=== PATIENT | male | born 1980 | race Hispanic/Latino ===

== ENCOUNTER 2016-07-24 23:44 | Emergency (ER) | payer OTHER ==
[~2016-07-24] VITALS: Ht 172.7 cm; Wt 90.9 kg
[~2016-07-24 23:44] MED LIST: AMOX-366 PO
[2016-07-25 00:01] VITALS: BP 149/100; PULSE 70; RESP 16; O2SAT 96
[2016-07-25 01:08] LABS: BASOPHILS % (AUTO) 0.8 % (0-3); EOSINOPHILS % (AUTO) 2.2 % (0-5); MONOCYTES % (AUTO) 7.5 % (4-12); Mean Corpuscular Hemoglobin 28.8 pg (27.0-35.0); Mean Corpuscular Volume 83.2 fL (81-100); NEUTROPHILS % (AUTO) 40.4 % (40-74); Platelet Count 346 bil/L (150-400)
--- NOTE | 2016-07-25 01:22 | ED.REPORT ---
HPI-General Illness Date of Service Jul 25, 2016 ED Provider: Aime Sampson MD Patient is a 35 year old male with a history of a skull fracture who presents to the ED complaining of increased fatigue that started 1 month ago. He describes his fatigue as what you experience when you take a road trip and drive for many hours without rest. 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 He feels lazy at work and that he cannot do his fair share of the work. He also reports having a headache , which he describes as a pressure on one side of his head. Patient is able to sleep at night normally, usually 8-9 hours. Patient reports recently being depressed, as one of his nephews several weeks ago. However his symptoms started before that event occurred. Patient denies chest pain, shortness of breath, or fever. He is a former smoker, quit 4 years ago. The patient has not consumed alcohol since his symptoms started. Patient denies illicit drug use. Nursing Notes Stated Complaint: FATIGUE/HEAD PRESSURE Chief Complaint: General Complaint Nursing Notes Reviewed: Yes Allergies: Coded Allergies: No Known Allergies (Unverified Allergy, Unknown, 05/31/15) Scheduled Amoxicillin/Clav K 875-125 mg (Augmentin 875-125 mg) 1 Each Tablet 1 TABLET PO BID Miscellaneous Medications ([None]) General Time Seen by MD: 01:20 Chief Complaint Other (fatigue) Hx Obtained From: Patient Arrived By: Walk-in Sudden in Onset?: No Onset Occurred: More than a week ago... (1 month) Symptom Duration: Since onset Location: : Head Quality: Painful, Pressure Severity: Current: Moderate Severity: Maximum: Moderate Recent Healthcare: No recent doctor visit, No recent hospitalization Similar Sx Previous: No Past Medical History Past Medical History skull fracture 2000 Past Surgical History Hand surgery parotid mass removed Reports: Appendectomy Smoking History Never Smoker Social History Alcohol Use: Denies alcohol use Drug Use: Denies drug use Other Social History: Good social support, Lives with children, Local resident Ambulatory Status Independent Review of Systems Full Review of Systems Constitutional: Reports: Fatigue, Malaise, Denies: Fever Respiratory: Denies: Shortness of breath Cardiovascular: Denies: Chest pain Neurologic: Reports: Headache, Denies: Change LOC Psychiatric: Denies: Depression Complete sys rev & neg: except as marked. Physical Exam Vital Signs Vital Signs Date Time Temp Pulse Resp B/P Pulse Ox O2 Delivery O2 Flow Rate FiO2 07/25/16 03:04 76 16 07/25/16 00:01 36.1 70 16 149/100 96 Room Air Initial VS: Reviewed Head / Eyes: Normocephalic, PERRL ENT: Conjunctiva normal, No scleral icterus Neck: Supple, Full range of motion Respiratory: Breath sounds normal, Clear to auscultation, No respiratory distress Cardiovascular: Regular rate & rhythm, Heart sounds normal Extremities: Vascular intact, Neuro intact, No swelling, No tenderness Skin: Warm, Dry, No cyanosis Neurologic: Alert, Oriented, Nonfocal Psychiatric: Mood/affect normal, Behavior normal, Normal thought content General/Constitutional: Awake, Alert, No acute distress Interpretation & Diagnostics Lab Results Interpretation Result Diagram: 07/25/16 0100 07/25/16 0100 Test 07/25/16 01:00 White Blood Count 7.2th/mm3 (3.8-10.1) Red Blood Count 4.93mil/mm3 (4.40-5.80) Hemoglobin 14.2g/dL (13.8-17.2) Hematocrit 41.0% (41.0-50.0) Mean Corpuscular Volume 83.2fL (81-100) Mean Corpuscular Hemoglobin 28.8pg (27.0-35.0) Mean Corpuscular Hemoglobin Concent 34.6% (32.0-37.0) Red Cell Distribution Width 13.1% (12.3-15.4) Platelet Count 346bil/L (150-400) Neutrophils (%) (Auto) 40.4% (40-74) Lymphocytes (%) (Auto) 48.8% (14-46) Monocytes (%) (Auto) 7.5% (4-12) Eosinophils (%) (Auto) 2.2% (0-5) Basophils (%) (Auto) 0.8% (0-3) Sodium Level 141mEq/L (134-144) Potassium Level 4.0mEq/L (3.5-5.2) Chloride Level 101mEq/L (97-108) Carbon Dioxide Level 24mmol/L (18-29) Blood Urea Nitrogen 15mg/dL (6-20) Creatinine 0.83mg/dL (0.76-1.27) Estimat Glomerular Filtration Rate 112mL/min (>59) Glucose Level 113mg/dL (60-99) Calcium Level 9.3mg/dL (8.5-10.1) Magnesium Level 2.1mg/dL (1.6-2.6) Total Bilirubin 0.4mg/dL (0.0-1.2) Aspartate Amino Transf (AST/SGOT) 28U/L (0-50) Alanine Aminotransferase (ALT/SGPT) 34U/L (0-44) Alkaline Phosphatase 113U/L (25-150) Total Protein 7.6g/dL (6.4-8.4) Albumin 4.6g/dL (3.4-5.0) Thyroid Stimulating Hormone (TSH) 1.020uIU/mL (0.450-4.500) Free Thyroxine 1.15ng/dL (0.82-1.77) Hold [place] Top Tube Received (Received) Re-Eval/Medical Decision Med Decision/Clinical Course 35-year-old male who presents with nonspecific symptoms of being unable to keep up at work and general fatigue. Initial screening labs were normal to include blood count, electrolytes, and thyroid. He will need further evaluation that I can not provide here in the emergency room to include more advanced imaging (MRI ) and more advanced laboratory that are [facility]. He was offered CT scanning of his head now but declined. He is encouraged to follow up as soon as possible. Source of Hx: Old records Time of Eval: 02:59 Re-Evaluation/Progress Note: Discussed the patient's lab results. No acute process identified. Patient understands the plan to be discharged home. Discharge instructions and follow-up discussed. All questions were addressed. Return to the ED warnings given. Counseled Regarding: Diagnosis, Lab results, Need for follow-up, When/why to return to ED Discharge & Departure Primary Impression: Fatigue Fatigue type: unspecified Qualified Code: R53.83 - Other fatigue Disposition: Home Discharge Condition All VS Reviewed: Yes Condition: No Change Additional Instructions: Screening labs to include looking for thyroid problems, anemia, or electrolyte abnormalities were all normal. There is no explanation found for your fatigue symptoms. Recommend that you follow up with your regular doctor for further evaluation. Referrals: [facility] Scribe Attestation Portions of this note were transcribed by Miriam Miranda. I, Dr. Sampson personally performed the history, physical exam and medical decision-making; I reviewed and confirmed the accuracy of the information in the transcribed note. Signed by: Tio Birmingham, 07/25/2016 0316 copies to: [facility] Aime Sampson MD Jul 25, 2016 01:22 Miriam Miranda Jul 25, 2016 01:29
[2016-07-25 02:07] LABS: Magnesium 2.1 mg/dL (1.6-2.6)
[2016-07-25 03:04] VITALS: PULSE 76; RESP 16
== END 2016-07-25 03:05 | disposition home or self-care (01) ==
LOC: SED 23:44
DX: R53.83 Other fatigue (principal); R51 Headache

== ENCOUNTER 2016-08-02 16:26 | Emergency (ER) | payer OTHER ==
[~2016-08-02] VITALS: Ht 172.7 cm; Wt 90.5 kg
[2016-08-02 16:29] VITALS: BP 144/93; PULSE 74; RESP 16; O2SAT 98
--- NOTE | 2016-08-02 18:09 | ED.REPORT ---
HPI-Headache Date of Service August 02, 2016 ED Provider: Tenzin GibsonO. A 35 year old male with a history of hypertension, hyperlipidemia, pre-diabetes , and a skull fracture (2000) presents to the ED with an intermittent headache onset one month ago, most recent onset one hour prior to arrival. The pain is described as throbbing pressure in his parietal and occipital regions, as though his "brain is swollen." Associated symptoms include near syncope, anxiety , and mental status change described as "fogginess" and "trouble comprehending. " The patient denies fever, sinus pain, congestion, or other symptoms. He has been seen by his PCP recently for dizziness, weakness, lightheadedness, and headache. The patient was also seen in the ED on 07/25/16 with one month of fatigue, depression, and headache. Nursing Notes Stated Complaint: HEAD PRESSURE Chief Complaint: Headache Nursing Notes Reviewed: Yes Allergies: Coded Allergies: No Known Allergies (Unverified Allergy, Unknown, 08/02/16) Scheduled Amoxicillin/Clav K 875-125 mg (Augmentin 875-125 mg) 1 Each Tablet 1 TABLET PO BID Miscellaneous Medications ([None]) General Time Seen by MD: 18:08 Chief Complaint Headache Hx Obtained From: Patient Arrived By: Walk-in Sudden in Onset?: No Onset Occurred: More than a week ago... (Most recent onset one hour prior to arrival) Symptom Duration: Intermittent Location: : Occipital bilateral: Parietal bilateral Quality: Painful, Pressure Severity: Current: Moderate Severity: Maximum: Moderate Pertinent Negative: Relieved by nothing Related History: Reports: Hypertension Recent Healthcare: Recent doctor visit Similar Sx Previous: Yes Past Medical History Past Medical History Skull fracture 2000 Hypertension Hyperlipidemia Pre-diabetes Past Surgical History Hand surgery Parotid mass removed Reports: Appendectomy Smoking History Never Smoker Social History Alcohol Use: Denies alcohol use Drug Use: Denies drug use Other Social History: Good social support, , Lives with children, Local resident Ambulatory Status Independent Review of Systems Constitutional: Denies: Fever Ears / Nose / Throat: Denies: Nasal congestion, Sinus problem GI: Denies: Diarrhea, Vomiting Neurologic: Reports: Headache Psychiatric: Reports: Anxiety, Change mental status ("Fogginess" and "Trouble Comprehending") Complete sys rev & neg: except as marked. Respiratory: Denies: Non-productive cough, Shortness of breath Physical Exam Initial Vital Signs Vital Signs (First) Date Time Temp Pulse Resp B/P Pulse Ox O2 Delivery O2 Flow Rate FiO2 08/02/16 16:29 36.2 74 16 144/93 98 Room Air Initial VS: Reviewed ENT: Conjunctiva normal, No scleral icterus Respiratory: Breath sounds normal, Clear to auscultation, No respiratory distress Cardiovascular: Regular rate & rhythm, Heart sounds normal Skin: Warm, Dry, No cyanosis General/Constitutional: Awake, Alert Behavior: Positive: Anxious Head / Eyes: Atraumatic, Normocephalic Neck: Supple, Full range of motion Neurologic: Oriented X3, Speech NL, No motor deficits, No sensory deficits Psychiatric: Affect NL Abnormal Mood/Affect: Positive: Anxious Interpretation & Diagnostics Lab Results Interpretation Result Diagram: 08/02/16180408/02/161804 Test 08/02/16 18:05 White Blood Count 9.0th/mm3 (3.8-10.1) Red Blood Count 5.28mil/mm3 (4.40-5.80) Hemoglobin 15.1g/dL (13.8-17.2) Hematocrit 44.2% (41.0-50.0) Mean Corpuscular Volume 83.7fL (81-100) Mean Corpuscular Hemoglobin 28.6pg (27.0-35.0) Mean Corpuscular Hemoglobin Concent 34.2% (32.0-37.0) Red Cell Distribution Width 13.4% (12.3-15.4) Platelet Count 416bil/L (150-400) Sodium Level 139mEq/L (134-144) Potassium Level 3.9mEq/L (3.5-5.2) Chloride Level 99mEq/L (97-108) Carbon Dioxide Level 24mmol/L (18-29) Blood Urea Nitrogen 11mg/dL (6-20) Creatinine 0.69mg/dL (0.76-1.27) Estimat Glomerular Filtration Rate 139mL/min (>59) Glucose Level 103mg/dL (60-99) Calcium Level 9.7mg/dL (8.5-10.1) Total Bilirubin 0.5mg/dL (0.0-1.2) Aspartate Amino Transf (AST/SGOT) 32U/L (0-50) Alanine Aminotransferase (ALT/SGPT) 33U/L (0-44) Alkaline Phosphatase 113U/L (25-150) Total Protein 8.0g/dL (6.4-8.4) Albumin 4.9g/dL (3.4-5.0) CT Head Interpretation IMPRESSION: 1. No acute intracranial findings. 2. Left parietal encephalomalacia are redemonstrated. Dictated by: Keshia Sauer M.D. on 08/02/2016 at 19:42 Study: Head CT no contrast Interpretation / Wet Read by: Interpret - Radiologist Re-Eval/Medical Decision Source of Hx: Old records Re-Evaluation/Progress : Time of Eval: 20:18 )( Patient Status: Condition improved Re-Evaluation/Progress Note: Patient's symptoms have greatly improved. Discussed with patient CT and lab results, diagnosis, and plan for discharge. Follow-up and return to the ER instructions given. Patient agrees with plan for care and all questions were addressed. Counseled Regarding: Diagnosis, Lab results, Need for follow-up, When/why to return to ED Discharge & Departure Impression: Primary Impression: Headache Headache type: unspecified Headache chronicity pattern: acute headache Intractability: not intractable Qualified Code: R51 - Headache Additional Impression: Anxiety Disposition: Home Discharge Condition All VS Reviewed: Yes Condition: Improved Patient Instructions: Acute Headache (GEN), Anxiety in Children (GEN) Additional Instructions: Thank you for entrusting us with your care. Your lab work and CT were reassuring for any serious illness today. Please take Xanax, one every eight hours as needed for anxiety. Do not drink alcohol or drive while taking the Xanax. Call your primary care provider on Thursday for a follow-up appointment. Also call the referred neurologist for a headache evaluation appointment. Return to the ER with any new or worsening symptoms. Referrals: [facility] (PCP) [facility] Donell Cueva MD Attestation Portions of this note were transcribed by Ivonne Ruff. I, Dr. Rowland, personally performed the history, physical exam, and medical decision-making; I reviewed and confirmed the accuracy of the information in the transcribed note. Signed by: Tio Schneider, 08/02/2016, 21:00 copies to: [facility]; Donell Cueva MD, Todd P DO August 02, 2016 18:08 IVONNE RUFF August 02, 2016 18:16
[2016-08-02 18:23] LABS: Mean Corpuscular Hemoglobin 28.6 pg (27.0-35.0); Mean Corpuscular Volume 83.7 fL (81-100)
--- NOTE | 2016-08-02 19:46 | DRSVH ---
PROCEDURE: CT BRAIN WITHOUT CONTRAST ([id number]) INDICATIONS: headache TECHNIQUE: Noncontrast 4.5 mm thick angled axial sections acquired from the foramen magnum to the vertex, with c oronal reformats. COMPARISON: [facility], CT, BRAIN W/O CONTRAST, 02/04/2013, 6:51. FINDINGS: Image quality: Excellent. CSF spaces: Basal cisterns are patent. No extra-axial fluid collections. Ventricles are normal in size and shape. Brain: No midline shift. No intracranial masses or hemorrhage. Encephalomalacia is redemonstrated w ithin the left parietal lobe unchanged from the study from 2012. Hernandez-white matter interface is norm al. Skull and face: Calvarium and visualized facial bones are intact, without suspicious lesions. Sinuses: Visualized sinuses and mastoids are clear. IMPRESSION: 1. No acute intracranial findings. 2. Left parietal encephalomalacia are redemonstrated. Dictated by: Keshia Sauer M.D. on 08/02/2016 at 19:42 Approved by: Keshia Sauer M.D. on 08/02/2016 at 19:44
[2016-08-02 20:49] VITALS: BP 139/95; PULSE 78; RESP 18; O2SAT 96
== END 2016-08-02 20:51 | disposition home or self-care (01) ==
LOC: SED 16:26
DX: R51 Headache (principal); F41.9 Anxiety disorder, unspecified; I10 Essential (primary) hypertension; E78.5 Hyperlipidemia, unspecified; Z87.891 Personal history of nicotine dependence; Z87.81 Personal history of (healed) traumatic fracture; Z90.89 Acquired absence of other organs
CPT/HCPCS: 36415; 70450; 80053; 85027; 96374; 96375; 99285; J1885; J2060

== ENCOUNTER 2016-08-11 15:03 | Emergency (ER) | payer OTHER | END 2016-08-11 15:21 | disposition left against medical advice (07) | LOC: SED 15:03 | DX: I10 Essential (primary) hypertension (principal) ==

== ENCOUNTER 2016-08-20 09:51 | Emergency (ER) | payer OTHER ==
[~2016-08-20] VITALS: Ht 172.7 cm; Wt 87.3 kg
[2016-08-20 09:54] VITALS: BP 129/83; PULSE 74; RESP 18; O2SAT 98
--- NOTE | 2016-08-20 10:08 | ED.REPORT ---
HPI-Abd Pain M Under 40 Date of Service August 20, 2016 ED Provider: Marbin Darling MD Patient is a 36 year old male with a history of hypertension, hyperlipidemia, pre-diabetes, and a skull fracture (2010) who presents to the ED complaining of intermittent epigastric pain onset 3 days ago. Associated symptoms include bloating, nausea, decreased appetite, one episode of diarrhea that has since resolved and feeling like his abdomen is "full of air". He denies dark/tarry stool, hematochezia, fever, dysuria, back pain, vomiting. The patient reports that he has never had this kind of pain before but has had constipation. Nursing Notes Stated Complaint: ABDOMINAL PAIN Chief Complaint: Male Abdominal Pain Nursing Notes Reviewed: Yes Allergies: Coded Allergies: lisinopril (Verified Allergy, Intermediate, throat swelling and itching., 08/20/16) Scheduled Amoxicillin/Clav K 875-125 mg (Augmentin 875-125 mg) 1 Each Tablet 1 TABLET PO BID Omeprazole (Omeprazole) 40 Mg Capsule.dr 40 MG PO DAILY Scheduled PRN Polyethylene Glycol 3350 (Miralax) 17 Gm Powd.pack 17 GM PO HS PRN PRN For Constipation Miscellaneous Medications ([None]) General Time Seen by MD: 10:03 Chief Complaint Abdominal pain Hx Obtained From: Patient Arrived By: Walk-in Sudden in Onset?: Yes Onset Occurred: 3 days ago Symptom Duration: Intermittent Location: : Epigastric Quality: Sharp Radiation: : Does not radiate Associated with: Reports: Nausea, Denies: Back pain, Constipation, Diarrhea, Dysuria, Fever, Hematochezia, Vomiting Context Related History: Denies: Abdominal surgery Similar Sx Previous: No Past Medical History Past Medical History Skull fracture 2000 Hypertension Hyperlipidemia Pre-diabetes Past Surgical History Hand surgery Parotid mass removed Reports: Appendectomy Smoking History Never Smoker Social History Alcohol Use: Denies alcohol use Drug Use: Denies drug use Other Social History: Good social support, , Lives with children, Local resident Ambulatory Status Independent Review of Systems Constitutional: Denies: Fever Respiratory: Denies: Non-productive cough, Shortness of breath GI: Reports: Abdominal pain, Constipation, Diarrhea, Nausea, Denies: Bloody/tarry stool, Hematochezia, Vomiting Male: Denies Dysuria Musculoskeletal: Denies: Back pain Complete sys rev & neg: except as marked. Physical Exam Initial Vital Signs Vital Signs (First) Date Time Temp Pulse Resp B/P Pulse Ox O2 Delivery O2 Flow Rate FiO2 08/20/16 09:54 36.3 74 18 129/83 98 Room Air Initial VS: Reviewed General/Constitutional: Awake, Alert, No acute distress Respiratory / Chest: Atraumatic, Breath sounds NL, Breath sounds = bilat, No respiratory distress Cardiovascular: Heart rate NL, Regular rhythm, Heart sounds NL Abdomen: Atraumatic, Soft, No guarding, No rebound Tenderness/Guarding/Rebound: Positive: Tender epigastric, Negative: Tender RLQ... Back: Atraumatic, Full range of motion Head / Eyes: Atraumatic, Normocephalic, PERRL, EOMI Neurologic: Oriented X3, Speech NL, No motor deficits, No sensory deficits Upper Extremity / MS: Atraumatic, Full range of motion Skin: Atraumatic, Color NL, No rash, Warm, Dry Psychiatric: Affect NL, Mood NL Interpretation & Diagnostics Lab Results Interpretation Result Diagram: 08/20/16 1035 08/20/16 1035 Test 08/20/16 10:35 White Blood Count 7.9th/mm3 (3.8-10.1) Red Blood Count 5.16mil/mm3 (4.40-5.80) Hemoglobin 14.9g/dL (13.8-17.2) Hematocrit 43.5% (41.0-50.0) Mean Corpuscular Volume 84.3fL (81-100) Mean Corpuscular Hemoglobin 28.9pg (27.0-35.0) Mean Corpuscular Hemoglobin Concent 34.3% (32.0-37.0) Red Cell Distribution Width 13.1% (12.3-15.4) Platelet Count 386bil/L (150-400) Neutrophils (%) (Auto) 60.5% (40-74) Lymphocytes (%) (Auto) 30.8% (14-46) Monocytes (%) (Auto) 7.0% (4-12) Eosinophils (%) (Auto) 1.0% (0-5) Basophils (%) (Auto) 0.4% (0-3) Sodium Level 141mEq/L (134-144) Potassium Level 4.0mEq/L (3.5-5.2) Chloride Level 101mEq/L (97-108) Carbon Dioxide Level 24mmol/L (18-29) Blood Urea Nitrogen 12mg/dL (6-20) Creatinine 0.80mg/dL (0.76-1.27) Estimat Glomerular Filtration Rate 116mL/min (>59) Glucose Level 104mg/dL (60-99) Calcium Level 9.7mg/dL (8.5-10.1) Magnesium Level 2.2mg/dL (1.6-2.6) Total Bilirubin 0.7mg/dL (0.0-1.2) Aspartate Amino Transf (AST/SGOT) 20U/L (0-50) Alanine Aminotransferase (ALT/SGPT) 20U/L (0-44) Alkaline Phosphatase 113U/L (25-150) Total Protein 8.0g/dL (6.4-8.4) Albumin 4.7g/dL (3.4-5.0) Lipase 20U/L (13-60) X-Ray Abdominal Interpretation IMPRESSION: No acute disease. Moderate stool. Dictated by: Armando Marley M.D. on 08/20/2016 at 11:10 Approved by: Armando Marley M.D. on 08/20/2016 at 11:11 Interpretation / Wet Read by: Interpret - Radiologist Re-Eval/Medical Decision Med Decision/Clinical Course 36-year-old male history of anxiety presenting with epigastric pain and constipation times several days. He denies any vomiting. Denies any blood in his stools. His abdominal exam is with mild epigastric tenderness no peritoneal signs no rebound or guarding. His vital signs are stable. His labs are unremarkable. His pain improved significantly with GI cocktail. Likely gastritis. He also has constipation visualized on x-ray which he reports clinically. We will treat for gastritis with PPI and Tums as needed. We will treat for constipation with Maalox. Given repeat abdominal exam benign pain resolved, we will discharge home with return precautions if new or worsening Pain, Blood in Stools, Vomiting, Fevers, Any Other New or Worsening Symptoms. Source of Hx: Old records Re-Evaluation/Progress : Time of Eval: 11:46 Patient Status: Condition improved Re-Evaluation/Progress Note: Discussed plan for discharge. The patient understands and agrees to the plan for discharge. All questions were addressed. Counseled Regarding: Diagnosis, Lab results, Need for follow-up, When/why to return to ED Patient Discharge & Departure Primary Impression: Constipation Constipation type: unspecified constipation type Qualified Code: K59.00 - Constipation, unspecified Additional Impressions: Gastritis Gastritis type: other gastritis Chronicity: unspecified Gastritis bleeding : without bleeding Qualified Code: K29.60 - Other gastritis without bleeding Epigastric pain Disposition: Home Discharge Condition All VS Reviewed: Yes Condition: Stable Patient Instructions: Constipation (ED), Gastritis (ED) Additional Instructions: Thank you for trusting us with your care today. Your labs looked reassuring. Your pain is most likely due to constipation and gastritis. Please follow up with your primary care physician next week. Take 1/2 cap of the Alyce lax, the laxative and mix it with liquid to make it more tolerable. Drink it before bed and it should help you in the morning. Take the Prilosec every day for the next month and then you should start to see an effect. If you are still in pain, for a short term fix, you can take Tums. You can also try drinking more milk or fluids with calcium.Try high fiber foods and being active to help with the constipation. Return to the emergency department if you develop any new or worsening symptoms including blood in your stool, black/tarry stool, vomiting, severe pain or other concerning symptoms. Referrals: Alexsander Lott DO (PCP) Tio Attestation Portions of this note were transcribed by Dotty Estrada. I, Dr. Tim Mills personally performed the history, physical exam and medical decision-making; I reviewed and confirmed the accuracy of the information in the transcribed note. Signed by: Tio Grijalva, 08/20/16 and 1030 copies to: Alexsander Lott Ben M MD August 20, 2016 10:08 Cathleen Estrada August 20, 2016 10:27
[2016-08-20] MEDS ORDERED: LidocaineVisc 2%:Antacid 1:1 10 mL Syringe PO ONE (10:20)
[2016-08-20 10:58] LABS: BASOPHILS % (AUTO) 0.4 % (0-3); Mean Corpuscular Hemoglobin 28.9 pg (27.0-35.0); Mean Corpuscular Volume 84.3 fL (81-100); NEUTROPHILS % (AUTO) 60.5 % (40-74); Platelet Count 386 bil/L (150-400)
--- NOTE | 2016-08-20 11:13 | DRSVH ---
PROCEDURE: X-RAY ACUTE ABDOMINAL SERIES ([id number]) INDICATIONS: abd pain epigastric TECHNIQUE: One view chest and two views of the abdomen were acquired. COMPARISON: None. FINDINGS: Surgical changes and devices: None. Chest: Lungs are clear. Heart size is normal. No pleural effusions. No pneumoperitoneum. Abdomen: Bowel gas pattern is nonobstructive. Moderate stool is present No suspicious calcification s. Visualized solid organ contours appear normal. Bones: No suspicious bony lesions. IMPRESSION: No acute disease. Moderate stool. Dictated by: Armando Marley M.D. on 08/20/2016 at 11:10 Approved by: Armando Marley M.D. on 08/20/2016 at 11:11
[2016-08-20 11:20] LABS: Magnesium 2.2 mg/dL (1.6-2.6)
[2016-08-20] MEDS ORDERED: OMEP40CA36 PO (11:51)
[2016-08-20] MEDS ORDERED: POLY17PO6 PO (11:52)
[2016-08-20 12:16] VITALS: BP 129/83; PULSE 74; RESP 18; O2SAT 98
== END 2016-08-20 12:00 | disposition home or self-care (01) ==
LOC: SED 09:51
DX: K59.00 Constipation, unspecified (principal); K29.60 Other gastritis without bleeding; R10.13 Epigastric pain; I10 Essential (primary) hypertension; E78.5 Hyperlipidemia, unspecified; R73.03 Prediabetes; Z88.8 Allergy status to other drugs, medicaments and biological substances; Z87.81 Personal history of (healed) traumatic fracture

== ENCOUNTER 2016-09-16 14:51 | Emergency (ER) | payer OTHER ==
[~2016-09-16] VITALS: Ht 172.7 cm; Wt 88.6 kg
[~2016-09-16 14:51] MED LIST changes: +OMEP40CA36 PO; +POLY17PO6 PO
[2016-09-16 14:53] VITALS: BP 119/75; RESP 16; O2SAT 99
--- NOTE | 2016-09-16 15:05 | ED.REPORT ---
HPI-General Illness Date of Service Sep 16, 2016 ED Provider: History of Present Illness: feels like throat is closing, hard to swallow, does lots of spitting on going for 2 weeks. lott is primary care. stooling and urination without problems. started after taking lisinopril on August 07. stoped taking lisinopril. quit smoking 5 years ago. no pain. Nursing Notes Stated Complaint: FEELS LIKE THROAT IS CLOSING Chief Complaint: ENT & Mouth Nursing Notes Reviewed: Yes Allergies: Coded Allergies: lisinopril (Verified Allergy, Intermediate, throat swelling and itching., 09/16/16) Scheduled Amoxicillin/Clav K 875-125 mg (Augmentin 875-125 mg) 1 Each Tablet 1 TABLET PO BID Omeprazole (Omeprazole) 40 Mg Capsule.dr 40 MG PO DAILY Scheduled PRN Polyethylene Glycol 3350 (Miralax) 17 Gm Powd.pack 17 GM PO HS PRN PRN For Constipation Miscellaneous Medications ([None]) General Time Seen by MD: 15:03 Chief Complaint Other (throat closing sensation) Hx Obtained From: Patient Sudden in Onset?: No Past Medical History Past Medical History Skull fracture 2000 Hypertension Hyperlipidemia Pre-diabetes Past Surgical History Hand surgery Parotid mass removed Reports: Appendectomy Smoking History Never Smoker Social History Alcohol Use: Denies alcohol use Drug Use: Denies drug use Other Social History: Good social support, Lives with children, Local resident 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, 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/16/2016 Ambulatory Status Independent Review of Systems Full Review of Systems Constitutional: Denies: Chills, Fatigue Eyes: Denies: Blurred right Ears / Nose / Throat: Denies: Ear drainage right Respiratory: Denies: Dyspnea on exertion Cardiovascular: Denies: Chest pain Male: Denies Dysuria Musculoskeletal: Denies: Back pain Physical Exam Vital Signs Vital Signs Date Time Temp Pulse Resp B/P Pulse Ox O2 Delivery O2 Flow Rate FiO2 09/16/16 14:53 36.8 80 16 119/75 99 Room Air Initial VS: Reviewed, Vital signs normal General/Constitutional: Well-developed, Well-nourished Head / Eyes: Atraumatic, Normocephalic, PERRL ENT: Mucous membranes moist, Conjunctiva normal, No scleral icterus Neck: Supple, Non-tender, Full range of motion Respiratory: Breath sounds normal, Clear to auscultation, No respiratory distress Cardiovascular: Regular rate & rhythm, Heart sounds normal, Intact distal pulses Abdomen / GI: Soft, Non-tender, No guarding, No rebound, No distention Back: No CVA tenderness Lymphatic: No lymphadenopathy Extremities: Vascular intact, Neuro intact, No swelling, No tenderness Skin: Warm, Dry, No cyanosis Neurologic: Alert, Oriented, Nonfocal Psychiatric: Mood/affect normal, Behavior normal, Normal thought content General/Constitutional: Awake, Alert, No acute distress, Well appearing, Well developed, Well hydrated, Well nourished, Cooperative, Not toxic appearing ENT: Atraumatic, Airway patent, Mucous membranes moist, Pharynx NL, No peritonsillar abscess Respiratory / Chest: Atraumatic, Breath sounds NL, Breath sounds = bilat, No respiratory distress Cardiovascular: Heart rate NL, Regular rhythm, Heart sounds NL Re-Eval/Medical Decision Med Decision/Clinical Course 36 year old male presents to the ER for problems swallowing and feeling like his throat is closing. Problem started August 07 after taking lisinopril. States has not been taking the lisinopril, blood pressure is normal. Eating without difficulty but he reports trouble swallowing. Stooling and urination without problems. Labs on 08/20/[address] Roldan. to be seen tomorrow. Informed patient of follow up. No sign of obstrucion or vocal changes Discharge & Departure Primary Impression: Swallowing difficulty Dysphagia type: unspecified Qualified Code: R13.10 - Dysphagia, unspecified Disposition: Home Additional Instructions: Your blood pressure is at 119/75, which is great! Your labs on 08/20 were normal. You are stooling and having urination without difficulty. You are able to speak without difficulty. Please Call Dr. Roldan's office later today and request that they work you in for tomorrow, at Dr. Roldan's request. Please follwo with primary care as needed. Referrals: Alexsander Lott DO (PCP) Angus Roldan MD EDSupervising Provider for APC: Herb Barahona MD copies to: Angus Roldan MD; Alexsander Lott Sue ARNP Sep 16, 2016 15:04
== END 2016-09-16 15:32 | disposition home or self-care (01) ==
LOC: SED 14:51
DX: R13.10 Dysphagia, unspecified (principal); I10 Essential (primary) hypertension; E78.5 Hyperlipidemia, unspecified; R73.03 Prediabetes; Z98.890 Other specified postprocedural states; Z88.8 Allergy status to other drugs, medicaments and biological substances

== ENCOUNTER 2016-09-18 10:05 | Emergency (ER) | payer OTHER ==
[~2016-09-18] VITALS: Ht 172.7 cm; Wt 86.0 kg
[2016-09-18 10:09] VITALS: BP 144/89; RESP 18; O2SAT 99
--- NOTE | 2016-09-18 10:22 | ED.REPORT ---
HPI-General Illness Date of Service Sep 18, 2016 ED Provider: Pedro Craig DO Patient is a 36 year old male who presents to the ED complaining of throat pain for the past two weeks. The patient states that it feels like there is something stuck is his throat and is unable to swallow solid food. He reports that he able to drink fluids without any problems. Patient denies fever, difficulty breathing, shortness of breath, problems walking, vision loss, double vision, neck pain, abdominal pain or problem talking. The patient was seen yesterday at the ED for the same complaint with instructions to follow up with an ENT but he was unable to get an appointment and the pain has gotten worse. Nursing Notes Stated Complaint: SOMETHING STUCK IN THROAT Chief Complaint: ENT & Mouth Nursing Notes Reviewed: Yes Allergies: Coded Allergies: lisinopril (Verified Allergy, Intermediate, throat swelling and itching., 09/16/16) Scheduled Famotidine (Pepcid) 40 Mg Tablet 40 MG PO BID General Time Seen by MD: 10:20 Chief Complaint Other (difficulty swallowing) Hx Obtained From: Patient Arrived By: Walk-in Sudden in Onset?: Yes Onset Occurred: More than a week ago... 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 Physical Exam Vital Signs Vital Signs Date Time Temp Pulse Resp B/P Pulse Ox O2 Delivery O2 Flow Rate FiO2 09/18/16 11:51 36.3 72 16 116/79 98 Room Air 09/18/16 10:09 36.4 72 18 144/89 99 Room Air Initial VS: Reviewed General/Constitutional: Awake, Alert Head / Eyes: Atraumatic, Normocephalic, PERRL, EOMI ENT: Atraumatic, Airway patent, Mucous membranes moist, Pharynx NL normal swallowing mechanism Neck: Atraumatic, Supple, No meningismus mild tenderness with palpation of the cricoid cartilage Respiratory / Chest: Atraumatic, Breath sounds NL, Breath sounds = bilat, No respiratory distress Skin: Atraumatic, Color NL, No rash, Warm, Dry Neurologic: Oriented X3, Speech NL, No motor deficits, No sensory deficits Psychiatric: Affect NL, Mood NL Interpretation & Diagnostics X-Ray Interpretation Xray Interpretation: IMPRESSION: No radiodense foreign body. Dictated by: Monica Cabrera MD, PhD on 09/18/2016 at 11:33 Approved by: Monica Cabrera MD, PhD on 09/18/2016 at 11:33 X-Ray Ordered: Neck Interpretation / Wet Read by: Interpret - ED physician Re-Eval/Medical Decision Med Decision/Clinical Course Patient complains of pain with swallowing, is subacute in nature going on for several weeks, I do not suspect an acute bacterial infection in this case. Symptoms were significantly improved with GI cocktail. He had previously stated he was unable to swallow solids and began to eat solid foods while in the ER. His vital signs are normal, his exam is reassuring, his soft tissue neck x-rays without obvious masses, and he has now been able to tolerate both oral solids and liquids while in the ER. We discussed the possibility of reflux or other causes of esophagitis. Return and follow-up precautions are given. Time of Eval: 11:30 Re-Evaluation/Progress Note: Patient was significantly improved after GI cocktail and was able to eat solid foods in the ED. Discussed X-ray results and plan for discharge. Patient understands and agrees to plan. All questions were addressed. Counseled Regarding: Diagnosis, Lab results, Need for follow-up, When/why to return to ED Discharge & Departure Primary Impression: Throat pain in adult Disposition: Home Discharge Condition All VS Reviewed: Yes Condition: Stable Additional Instructions: Your x-ray is reassuring. There are no visualized masses. This may be inflammation of your esophagus. Pepcid twice daily as prescribed to decrease the acid in your stomach which may be affecting this. Use over-the- counter liquid antacids such Maalox, Gaviscon, or the generic equivalent of these as directed [id number] as needed for discomfort in your throat. You should follow-up with your primary care doctor for referral to both ENT and possibly GI for direct visualization of the structures. Return to the ER if you develop inability to swallow, high fever, significant swelling to your throat, or any other concerns Referrals: Alexsander Lott DO (PCP) 2-3 days Scribe Attestation Portions of this note were transcribed by Dotty Estrada. I, Dr. Chinmay Soria personally performed the history, physical exam and medical decision-making; I reviewed and confirmed the accuracy of the information in the transcribed note. Signed by: Tio Grijalva, 09/18/16 and 1140 copies to: Alexsander Lott Timothy S DO Sep 18, 2016 10:22 Cathleen Estrada Sep 18, 2016 10:37
[2016-09-18] MEDS ORDERED: LidocaineVisc 2%:Antacid 1:1 10 mL Syringe PO ONE (10:35)
--- NOTE | 2016-09-18 11:34 | DRSVH ---
PROCEDURE: X-RAY NECK SOFT TISSUE ([id number]) INDICATIONS: difficulty swallowing, pain at level of cricoid TECHNIQUE: 2 views of the neck were acquired. COMPARISON: None. FINDINGS: Airway: The airway appears patent. Soft tissues: Prevertebral soft tissues are normal in thickness. The epiglottis and aryepiglottic f olds appear normal. No soft tissue gas. No radiodense foreign bodies identified. Bones: No suspicious bony lesions. Visualized cervical spine is normally aligned. IMPRESSION: No radiodense foreign body. Dictated by: Monica Cabrera MD, PhD on 09/18/2016 at 11:33 Approved by: Monica Cabrera MD, PhD on 09/18/2016 at 11:33
[2016-09-18] MEDS ORDERED: FAMO40TA72 PO (11:40)
[2016-09-18 11:51] VITALS: BP 116/79; PULSE 72; RESP 16; O2SAT 98
== END 2016-09-18 11:52 | disposition home or self-care (01) ==
LOC: SED 10:05
DX: R07.0 Pain in throat (principal); R13.10 Dysphagia, unspecified; I10 Essential (primary) hypertension; E78.5 Hyperlipidemia, unspecified; R73.03 Prediabetes; Z88.8 Allergy status to other drugs, medicaments and biological substances

== ENCOUNTER 2016-09-18 18:19 | Emergency (ER) | payer OTHER ==
[~2016-09-18] VITALS: Ht 172.7 cm; Wt 86.4 kg
[~2016-09-18 18:19] MED LIST changes: +FAMO40TA72 PO
[2016-09-18 18:29] VITALS: BP 142/89; RESP 16; O2SAT 97
[2016-09-18] MEDS ORDERED: Alum-Mag Hydrox-Simeth 30 mL Suspension PO ONE (19:10)
[2016-09-18] MEDS ORDERED: Benzocaine-Menthol Lozenge 2/Pkg PO ONE (19:10)
--- NOTE | 2016-09-18 19:20 | ED.REPORT ---
HPI-General Illness Date of Service Sep 18, 2016 ED Provider: Pavel Briseno PA-C Siddhartha is a 36-year-old male presenting with chief complaint of throat pain. He reports difficulty swallowing and a sensation of a foreign body in his throat located below his Laureano's apple. He reports difficulty swallowing liquid and solid food. Especially bothered attempting to swallow saliva. Denies difficulty breathing, wheeze, fevers, vomiting, vision change, difficulty walking, difficulty talking. Seems department 2 days ago and again this morning. X-rays at that time were negative. He reports that his symptoms improved significantly with the GI cocktail and is able to eat and drink easily. Symptoms returned when that wore off. He has not been able to follow up with primary care or ENT yet. Nursing Notes Stated Complaint: SORE THROAT Chief Complaint: ENT & Mouth Nursing Notes Reviewed: Yes Allergies: Coded Allergies: lisinopril (Verified Allergy, Intermediate, throat swelling and itching., 09/18/16) Scheduled Famotidine (Pepcid) 40 Mg Tablet 40 MG PO BID General Time Seen by MD: 18:55 Chief Complaint Other (throat pain) Past Medical History Past Medical History Skull fracture 2000 Hypertension Hyperlipidemia Pre-diabetes Past Surgical History Hand surgery Parotid mass removed Reports: Appendectomy Smoking History Never Smoker Social History Alcohol Use: Denies alcohol use Drug Use: Denies drug use Other Social History: Good social support, Lives with children, Local resident 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 Head: Atraumatic, normocephalic. No mastoid tenderness. Eyes: No scleral icterus or injection. No discharge. Vision grossly intact. Ears: Pinna and tragus nontender with manipulation. External auditory canal patent, atraumatic and without discharge. Tympanic membrane watkins, shiny and translucent without fluid, bulging, retraction or perforation. Hearing grossly intact. Nose: Symmetrical, nares patent without discharge. No frontal or maxillary sinus tenderness. Mouth/pharynx: normal dentition, mucus membranes moist. Tonsils 2+ and symmetrical, uvula midline. Pharynx noninjected, no cobblestoning or discharge. Voice clear. Lower mouth remained soft. Negative trismus. Neck: Normal to inspection. No tenderness or lymphadenopathy. Trachea midline. Respiratory: No respiratory distress, no increased work of breathing. Speaks in complete sentences. Skin: Warm and dry. Neurological: Grossly nonfocal. Cranial nerves: Vision grossly intact, PERRL, EOMI. Facial motion symmetrical, sensation to light touch over forehead, maxilla and mandible present and equal B /L. Voice clear and fluent, no drooling/pooling of saliva, uvula rises midline. Psychological: alert and oriented. Speech appropriate, linear and logical. Behavior appropriate. Vital Signs Vital Signs Date Time Temp Pulse Resp B/P Pulse Ox O2 Delivery O2 Flow Rate FiO2 09/18/16 22:31 65 16 137/90 96 Room Air 09/18/16 22:08 65 16 137/90 96 09/18/16 18:29 36.6 76 16 142/89 97 Room Air Mildly elevated blood pressure Interpretation & Diagnostics Lab Results Interpretation Result Diagram: 09/18/16201909/18/16 2020 Test 09/18/16 20:20 White Blood Count 6.7th/mm3 (3.8-10.1) Red Blood Count 4.95mil/mm3 (4.40-5.80) Hemoglobin 14.4g/dL (13.8-17.2) Hematocrit 41.5% (41.0-50.0) Mean Corpuscular Volume 83.8fL (81-100) Mean Corpuscular Hemoglobin 29.1pg (27.0-35.0) Mean Corpuscular Hemoglobin Concent 34.7% (32.0-37.0) Red Cell Distribution Width 13.1% (12.3-15.4) Platelet Count 374bil/L (150-400) Neutrophils (%) (Auto) 54.8% (40-74) Lymphocytes (%) (Auto) 35.2% (14-46) Monocytes (%) (Auto) 8.8% (4-12) Eosinophils (%) (Auto) 0.9% (0-5) Basophils (%) (Auto) 0.3% (0-3) Sodium Level 138mEq/L (134-144) Potassium Level 3.6mEq/L (3.5-5.2) Chloride Level 99mEq/L (97-108) Carbon Dioxide Level 24mmol/L (18-29) Blood Urea Nitrogen 12mg/dL (6-20) Creatinine 0.77mg/dL (0.76-1.27) Estimat Glomerular Filtration Rate 121mL/min (>59) Glucose Level 107mg/dL (60-99) Calcium Level 10.0mg/dL (8.5-10.1) Total Bilirubin 0.6mg/dL (0.0-1.2) Aspartate Amino Transf (AST/SGOT) 23U/L (0-50) Alanine Aminotransferase (ALT/SGPT) 20U/L (0-44) Alkaline Phosphatase 112U/L (25-150) Total Protein 8.6g/dL (6.4-8.4) Albumin 5.1g/dL (3.4-5.0) Re-Eval/Medical Decision Med Decision/Clinical Course Siddhartha is otherwise healthy 36-year-old male returning to the emergency department for the third time with a chief complaint of throat pain. He reports 2 week history of sensation of foreign body in his throat making it difficult to swallow. He reports it is painful to eat solid food that he can manage liquid. He find swallowing his secretions especially bothersome. Denies other neurological symptoms. Seen in this department this morning, and had relief of symptoms with GI cocktail. He is able to eat successfully after that. Symptoms returned as medication wore off. He has been unable to arrange ENT follow-up, which was advised to days ago after his initial visit. Physical examination reveals a normal neurological examination, patient is managing secretions well. Throat normal to inspection, symmetrical, nontender, negative swelling or firmness in the base of the mouth. Attempted treatment with Maalox and Cepacol lozenges, which the patient initially found helpful but he was unable to eat more and a few spoonfuls of Jell-O without return of his symptoms. Discussed this with Dr. Rowland recommends CT, throat culture, rapid strep, CBC, CMP, which are ordered. Rapid strep is positive labs reassuring ct is normal will rx with decadron and 10 day course of amoxicillin Time of Eval: 20:07 Re-Evaluation/Progress Note: Attempted treatment with Maalox and Cepacol lozenge. Patient reports mild improvement of symptoms, but is unable to eat more than a few spoonfuls of Jell-O. I discussed the case with Dr. Rowland, who recommends CT neck soft tissue with contrast, throat cultures, rapid strep, CBC, CMP. Discharge & Departure Shift Change Sign-Out Patient Care Transferred: Yes () Discussed Complaint(s): Yes Laboratory Evaluation: Done, results pending Imaging Studies: Ordered, not yet done Primary Impression: Streptococcal sore throat Additional Impression: Throat pain in adult Disposition: Home Patient Instructions: Strep Throat (ED) Referrals: Alexsander Lott DO (PCP) EDSupervising Provider for APC: Ted Rowland DO Attending Statement I personally perform an exam. Mr. Barahona has an erythematous oropharynx in my opinion. The rapid strep was positive. The CT scan was normal. Course of amoxicillin prescribed. I agree with the note otherwise. Pavel Briseno PA-C Sep 18, 2016 19:20 Ted Rowland DO Sep 18, 2016 22:05
[2016-09-18] MEDS ORDERED: 0.9% Sodium Chloride 1,000 ML IV ONE (20:05)
[2016-09-18 20:27] LABS: BASOPHILS % (AUTO) 0.3 % (0-3); EOSINOPHILS % (AUTO) 0.9 % (0-5); MONOCYTES % (AUTO) 8.8 % (4-12); Mean Corpuscular Hemoglobin 29.1 pg (27.0-35.0); Mean Corpuscular Volume 83.8 fL (81-100); NEUTROPHILS % (AUTO) 54.8 % (40-74); Platelet Count 374 bil/L (150-400)
--- NOTE | 2016-09-18 21:28 | DRSVH ---
PROCEDURE: CT NECK SOFT TISSUES WITH CONTRAST ([id number]) INDICATIONS: throat pain TECHNIQUE: After the administration of intravenous contrast, 3.0 mm axial sections acquired from the sella to th e aortic arch. Additional oblique axial 3.0 mm sections acquired through the pharynx. 3 mm thick co julius reformats were generated. For radiation dose reduction, the following was used: automated exp osure control. COMPARISON: [facility], CT, CT BRAIN WO CON, 08/02/2016, 19:02. FINDINGS: Image quality: Excellent. Lymph nodes: No enlarged lymph nodes seen throughout the neck. Vessels: Visualized vasculature appears patent. Neck spaces: The oropharynx, nasopharynx, and pharynx demonstrate no mucosal lesions. The vocal cor ds, false vocal cords, pyriform sinuses, epiglottis, vallecula, and tongue base all appear normal. E xtramucosal spaces appear unremarkable. Glands: The parotid and submandibular glands appear normal. Thyroid gland is present. Miscellaneous: Visualized brain and orbits appear normal. Lung apices appear clear. Superficial so ft tissues appear normal. Bones: No suspicious bony lesions. Mucosal thickening in the inferior maxillary sinuses. IMPRESSION: No CT evidence of abscess or acute pathology. Dictated by: Avery Atkinson M.D. on 09/18/2016 at 21:16 Approved by: Avery Atkinson M.D. on 09/18/2016 at 21:20
[2016-09-18] MEDS ORDERED: Dexamethasone 20 mg/2 mL Oral Solution PO ONE (22:05)
[2016-09-18 22:08] VITALS: BP 137/90; PULSE 65; RESP 16; O2SAT 96
[2016-09-18 22:31] VITALS: BP 137/90; PULSE 65; RESP 16; O2SAT 96
== END 2016-09-18 22:32 | disposition home or self-care (01) ==
LOC: SED 18:19
DX: J02.0 Streptococcal pharyngitis (principal); I10 Essential (primary) hypertension; E78.5 Hyperlipidemia, unspecified; R73.03 Prediabetes
CPT/HCPCS: 36415; 70491; 80053; 85025; 87880; 96360; 99284; J7030; Q9967

== ENCOUNTER 2016-10-24 08:34 | Day surgery (SDC) | payer OTHER ==
[~2016-10-24] VITALS: Ht 172.7 cm; Wt 79.4 kg
[~2016-10-24 08:34] MED LIST changes: +0.9% Sodium Chloride 1,000 ML IV SCH; -AMOX-366 PO; +CFTR1V IVPB; -FAMO40TA72 PO; -POLY17PO6 PO; +Sodium Chloride LOK Flush 10 mL Syringe IV PRN; +fentaNYL-PF 50 mCg/mL 2 mL Inj IVPUSH PRN
[2016-10-24] MEDS ORDERED: Propofol 10,000 mCg/mL 20 mL Inj ONE (08:35)
[2016-10-24 08:54] VITALS: BP 128/84; PULSE 65; RESP 16; O2SAT 100
[2016-10-24 10:20] VITALS: BP 95/70; PULSE 70; RESP 15; O2SAT 95
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
--- NOTE | 2016-10-24 10:26 | PCM.ANEP1 ---
Post Anesthesia PACU Phase 1 Assessment Date of Service: Oct 24, 2016 Vital Signs Vital Signs Date Time Temp Pulse Resp B/P Pulse Ox O2 Delivery O2 Flow Rate FiO2 10/24/16 08:54 65 16 128/84 100 Room Air Anesthetic Administered: MAC Level of Alertness: Sleepy, easy to arouse MELVIN's with Equal Strength: Yes Pain: No Nausea or Vomiting: No CV Function & Hydration Stable: Yes Airway Device: Oxygen Delivery: Room Air Lungs: Clear to Auscultation, Normal Air Movement Dermatome Level: Full Sensation PACU Phase 2 Assessment Complications: No Patient Instructions Provided: N/A Luis Anguiano DO Oct 24, 2016 10:26
[2016-10-24 10:30] VITALS: BP 101/63; PULSE 69; RESP 15; O2SAT 97
[2016-10-24 10:40] VITALS: BP 106/67; PULSE 63; RESP 15; O2SAT 96
--- NOTE | 2016-10-24 15:28 | ENDO ---
[address] [address] ENDOSCOPY PROCEDURE PATIENT: CHIRAG HANLEY : 1980 MR#: [id number] ADMIT: 10/24/2016 JOB ID: [id number] TYPE OF OPERATION: 1. Esophagogastroduodenoscopy with biopsy. 2. Colonoscopy with biopsy. PREOPERATIVE DIAGNOSIS(ES): Weight loss, dysphagia, epigastric pain. POSTOPERATIVE DIAGNOSIS(ES): 1. Normal upper endoscopy, status post biopsy. 2. Colonoscopy, status post biopsy. ANESTHESIA: The patient received fentanyl 175 mcg and Versed 5 mg, and then converted to a rescue given the fact that the patient could not tolerate the procedure with conscious sedation. COMPLICATIONS: None. ESTIMATED BLOOD LOSS: Minimal. DESCRIPTION OF PROCEDURE: After the risks and benefits were explained to the patient, informed consent was obtained. After anesthesia was administered, an upper endoscope was inserted into the mouth and intubated through the esophagus, stomach, second portion of the duodenum, and the mucosa carefully examined. After the procedure was done, the scope withdrawn and the procedure terminated. Colonoscope was inserted per rectum to the terminal ileum and the mucosa carefully examined. Prep of the patient was fair. After the procedure was done, the scope was withdrawn and the procedure terminated. FINDINGS: Upon inspection of the esophagus, the esophagus was normal, without masses, ulcers, or lesions. Z-line located 40 cm from incisors. Upon entering the stomach, the stomach was also normal, without masses, ulcers, or lesions. Retroflexion was normal. Duodenal bulb, first and second portion were normal. Biopsies taken at the duodenum, antrum, and body, and mid distal esophagus. Upon inspection of the anus, no masses, hemorrhoids, ulcers, or fissures that were seen. Throughout the entire examination there were no polyps, masses, or lesions. Biopsies were taken in the terminal ileum and random colon. Retroflexion was normal. IMPRESSION: 1. Normal endoscopy status post biopsy. 2. Normal colonoscopy status post biopsy RECOMMENDATIONS: Await pathology results. Follow up in GI Clinic as needed.
--- NOTE | 2016-10-27 16:59 | PATH ---
SURGICAL PATHOLOGY Attending Physician:Darren Marino MD CASE STATUS: Signed Out PATIENT NAME: CHIRAG HANLEY SR PID: [id number] : 1980 DATE COLLECTED:10/24/2016 16:36 SPECIMEN: 1: Duodenum, Biopsy 2: Stomach, Antrum, Biopsy 3: Gastric, Biopsy 4: Esophagus, Biopsy 5: Esophagus, Biopsy 6: Ileum, Biopsy 7: Colon, Biopsy CLINICAL HISTORY: 1). DUODENUM BIOPSY 2). ANTRUM BIOPSY 3). GASTRIC BODY BIOPSY (RULE OUT H.PYLORI) 4). DISTAL EOSPHAGUS BIOPSY 5). MID ESOPHAGUS BIOPSY 6). TERMINAL ILEUM BIOPSY 7). RANDOM COLON BIOPSY FINAL DIAGNOSIS: 1. Duodenum, Biopsy: Duodenum with no diagnostic abnormality. Negative for active inflammation, features of sprue, dysplasia, and malignancy. 2. Antrum, Biopsy: Portion of gastric antral mucosa with chronic gastritis. Rare organisms concerning for possible H. pylori are present by H&E stain. Negative for intestinal metaplasia, dysplasia, and malignancy. 3. Gastric Body, Biopsy: Portions of gastric body-type mucosa with chronic gastritis. Rare organisms concerning for possible H. pylori are present by H&E stain. Immunohistochemistry studies pending; results will be reported as an addendum. Negative for intestinal metaplasia, dysplasia, and malignancy. 4. Distal Esophagus, Biopsy: Squamocolumnar junctional mucosa with no diagnostic abnormality. Negative for intestinal metaplasia. Negative for dysplasia and malignancy. 5. Mid Esophagus, Biopsy: Portions of squamous mucosa with no diagnostic abnormality. No increased eosinophils identified. Negative for dysplasia and malignancy. 6. Terminal Ileum, Biopsy: Portions of small bowel mucosa with no diagnostic abnormality. Negative for active inflammation, granulomas, dysplasia, and malignancy. 7. Random Colon Biopsies: Superficial portions of colorectal mucosa with scattered lymphoid aggregates and patchy, mild intraepithelial lymphocytosis (up to approximately 5 lymphocytes / 100 epithelial cells, insufficient for a diagnosis of lymphocytic colitis). Negative for active inflammation, granulomas, dysplasia, and malignancy. ICD10: K29.7 GROSS DESCRIPTION: The specimen is received in 7 formalin filled containers labeled with the patient's name. 1). The specimen is labeled "duodenum" and cysts of 2 portions of tissue which aggregate to 0.3 x 0.3 x 0.2 CM. The specimen is entirely submitted in cassette 1A. 2). The specimen is labeled "antrum" and consists of a 0.3 x 0.3 x 0.2 CM portion of tissue which is entirely submitted in cassette 2A. 3). The specimen is labeled "gastric body" and consists of 2 portions of tissue which aggregate to 0.3 x 0.2 x 0.2 CM. The specimen is entirely submitted in cassette 3A. 4). The specimen is labeled "distal esophagus" and consists of 3 extremely tiny portions of tissue which aggregate to 0.1 x 0.1 x 0.1 CM. The specimen is entirely submitted in cassette 4A. 5). The specimen is labeled "mid esophagus" and consists of 2 portions of tissue which aggregate to 0.2 x 0.2 x 0.2 CM. The specimen is entirely submitted in cassette 5A. 6). The specimen is labeled "terminal ileum and "consists of 0.2 x 0.2 x 0.2 CM. The specimen is entirely submitted in cassette 6A. 7). The specimen is labeled "random colon" and consists of 5 portions of tissue which aggregate to 0.3 x 0.3 x 0.2 CM. The specimen is entirely submitted in cassette 7A. 10/24/2016HI ICD-9 CODES: CPT CODES: 1: 28644 2: 50575 3: 96346, 88235 4: 19113 5: 67303 6: 38208 7: 57052 PROCEDURE/ADDENDA: Immunohistochemistry SPI Interpretation {Not Entered} Results-Comments 3. Gastric Biopsy: Immunohistochemical stains are performed to further evaluate for the presence of Helicobacter organisms. The patient tissue is stained with monoclonal antibody to Helicobacter pylori (SP48). Positive and negative controls stain appropriately. Result: The patient tissue shows no staining. Interpretation: The gastric mucosa is negative for Helicobacter pylori by immunohistochemical stains. 3. GASTRIC BODY, BIOPSY: Negative for H. pylori organisms by immunohistochemistry studies. This test was developed and its performance characteristics determined by [employer]. It has not been cleared or approved by the U. S. Food and Drug Administration. The FDA has determined that such clearance or approval is not necessary. This test is used for clinical purposes. It should not be regarded as investigational or for research. Electronically Signed Out Kimber Fitzpatrick MD Electronically Signed Out Kimber Fitzpatrick MD [facility] [address], [place] [phone] Technical component performed at [facility], [address], [place], [address]
== END 2016-10-24 23:59 | disposition home or self-care (01) ==
LOC: END 08:34
PROVIDERS: ATTEND Internal Medicine Gastroenterology
DX: R63.4 Abnormal weight loss (principal); K21.9 Gastro-esophageal reflux disease without esophagitis; K29.50 Unspecified chronic gastritis without bleeding; R10.13 Epigastric pain; R13.10 Dysphagia, unspecified; I10 Essential (primary) hypertension
CPT/HCPCS: 43239; 45380; 88305; 88342; J2250; J3010; J7030

== ENCOUNTER 2016-11-13 21:47 | Emergency (ER) | payer OTHER ==
[~2016-11-13 21:47] MED LIST changes: -0.9% Sodium Chloride 1,000 ML IV SCH; -CFTR1V IVPB; -Sodium Chloride LOK Flush 10 mL Syringe IV PRN; -fentaNYL-PF 50 mCg/mL 2 mL Inj IVPUSH PRN
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
[2016-11-13 21:59] LABS: BASOPHILS % (AUTO) 0.6 % (0-3); EOSINOPHILS % (AUTO) 1.8 % (0-5); MONOCYTES % (AUTO) 6.5 % (4-12); Mean Corpuscular Hemoglobin 29.1 pg (27.0-35.0); Mean Corpuscular Volume 85.1 fL (81-100); NEUTROPHILS % (AUTO) 37.4 % (40-74); Platelet Count 401 bil/L (150-400)
[2016-11-13 22:14] LABS: INR 0.92 ratio
[2016-11-14] MEDS ORDERED: _HYDROcodone/APAP 5-325 mg Tablet PO PRN (01:35)
[2016-11-14] MEDS ORDERED: HYDR-4003 PO (01:39)
--- NOTE | 2016-11-14 07:06 | DRSVH ---
PROCEDURE: CT CERVICAL SPINE WITHOUT CONTRAST ([id number]) INDICATIONS: MCA TECHNIQUE: Noncontrast 3 mm thick sections acquired from the skull base to the T4 level. Sagittal and coronal r eformats were then constructed. For radiation dose reduction, the following was used: automated exp osure control, adjustment of mA and/or kV according to patient size. COMPARISON: None. FINDINGS: Image quality: Excellent. Bones: There is a nondisplaced fracture involving the right transverse process of T1. There is also a nondisplaced fracture of the right first rib. Visualized superior ribs are intact. Soft tissues: Prevertebral soft tissues are normal in thickness. No paravertebral hematomas. No ap ical pneumothoraces. IMPRESSION: 1. Nondisplaced fracture of the right transverse process of T1. 2. Nondisplaced fracture of the right first rib. No significant discrepancy with the operations supervisor 2nd shift radiology preliminary report. Dictated by: Ema Kelsey M.D. on 11/14/2016 at 7:02 Approved by: Ema Kelsey M.D. on 11/14/2016 at 7:05
--- NOTE | 2016-11-14 07:22 | DRSVH ---
PROCEDURE: CT CHEST WITH CONTRAST ([id number]) INDICATIONS: MCA, right first rib fracture TECHNIQUE: After the administration of intravenous contrast, 5 mm thick sections acquired from the pulmonary api brad to the posterior costophrenic angles. 7 mm thick coronal and sagittal MIP reformats were acquire d. For radiation dose reduction, the following was used: automated exposure control, adjustment of mA and/or kV according to patient size. COMPARISON: [facility], CT, CT CERVICAL SPINE WO CON, 11/13/2016, 22:09. FINDINGS: Image quality: Excellent. Lungs and pleura: No acute air space opacities. No pleural effusions or pneumothorax. Central and peripheral airways are patent and normal in caliber. Mediastinum: Heart size is normal. No pericardial effusion. No mediastinal or hilar adenopathy by size criteria. Thoracic aorta and central pulmonary arteries are normal in size. Esophagus is ethan l in caliber. No hiatal hernia. Bones and chest wall: No suspicious bony lesions. No vertebral body compression fractures. Right f acet fracture is noted. No axillary or supraclavicular adenopathy by size criteria. Thyroid gland is normal. Abdomen: Visualized upper abdominal solid organs appear normal. Upper abdominal bowel loops are nor mal in caliber. IMPRESSION: 1. Right first rib fracture which is better seen on cervical spine CT. 2. No other traumatic injury in thorax. No significant discrepancy with the night custodian radiology preliminary report. Dictated by: Ema Kelsey M.D. on 11/14/2016 at 7:21 Transcribed by: FRANKO on 11/14/2016 at 7:22 Approved by: Ema Kelsey M.D. on 11/14/2016 at 13:42
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
--- NOTE | 2016-11-14 07:38 | DRSVH ---
PROCEDURE: X-RAY LEFT HAND, MINIMUM THREE VIEWS ([id number]) INDICATIONS: [facility] TECHNIQUE: 4 views of the hand(s) acquired. COMPARISON: [facility], CR, HAND MIN 3VW (LT), 02/17/2008, 20:46. FINDINGS: Bones: Mildly displaced triquetral fracture. Carpal bones are normally aligned. No suspicious bony lesions. Soft tissues: No suspicious soft tissue calcifications. IMPRESSION: Mildly displaced triquetral fracture of unknown age new since 2007. Please correlate with clinical point tenderness at this site. Dictated by: Avery Atkinson M.D. on 11/14/2016 at 7:35 Approved by: Avery Atkinson M.D. on 11/14/2016 at 7:36
== END 2016-11-14 02:19 | disposition home or self-care (01) ==
LOC: SED 21:47
DX: S22.018A Other fracture of first thoracic vertebra, initial encounter for closed fracture (principal); S22.31XA Fracture of one rib, right side, initial encounter for closed fracture; S62.232A Other displaced fracture of base of first metacarpal bone, left hand, initial encounter for closed fracture; M54.2 Cervicalgia; V23.4XXA Motorcycle driver injured in collision with car, pick-up truck or van in traffic accident, initial encounter; Y93.89 Activity, other specified; Y99.8 Other external cause status; Y92.410 Unspecified street and highway as the place of occurrence of the external cause; I10 Essential (primary) hypertension; E78.5 Hyperlipidemia, unspecified; Z87.81 Personal history of (healed) traumatic fracture; Z90.89 Acquired absence of other organs; Z88.8 Allergy status to other drugs, medicaments and biological substances
CPT/HCPCS: 36415; 71010; 71260; 72125; 72170; 73130; 80053; 85014; 85018; 85025; 85610; 85730; 86850; 93005; 99285; G0390; G0480; Q9967